=== PATIENT | female | born 1950 | race Caucasian/White ===

== ENCOUNTER 2022-01-16 18:39 | Emergency (ER) | payer MEDICARE, MEDICAID ==
[~2022-01-16] VITALS: Ht 162.6 cm; Wt 64.0 kg
[2022-01-16] MEDS ORDERED: KEPP500 MT (19:07)
[2022-01-16] MEDS ORDERED: LEVETIRACETAM 500MG PREMIX 100 ML IV ONE (19:15)
[2022-01-16] MEDS ORDERED: LEVETIRACETAM 500MG TABLET PO ONE (19:15)
[2022-01-16] MEDS ORDERED: LEVETIRACETAM 500MG TABLET PO NR (20:15)
[2022-01-16 22:30] VITALS: BP 121/62
== END 2022-01-16 22:35 | disposition home or self-care (01) ==
LOC: ER 18:39
DX: G40.909 Epilepsy, unspecified, not intractable, without status epilepticus (principal)
CPT/HCPCS: 96365; 99285; J1953